=== PATIENT | female | born 1990 | race Caucasian/White ===

== ENCOUNTER 2024-10-29 11:24 | Inpatient (IN) | payer OTHER ==
[2024-10-29 12:36] VITALS: BMI 23.9
[2024-10-29] MEDS ORDERED: IBUPROFEN 400 MG TABLET (FP) PO PRN (12:54)
[2024-10-29] MEDS ORDERED: METHOCARBAMOL 500 MG TABLET PO PRN (12:54)
[2024-10-29] MEDS ORDERED: ACETAMINOPHEN 325 MG TABLET (FP) PO PRN (12:54)
[2024-10-29] MEDS ORDERED: BENZOCAINE/MENTHOL (CHLORASEPTIC ) LOZENGE MM PRN (12:54)
[2024-10-29] MEDS ORDERED: NALOXONE (NARCAN) HCL 4 MG/0.1 ML SPRAY NS PRN (12:54)
[2024-10-29] MEDS ORDERED: BISMUTH SUBSALICYLATE 524 MG/30 ML PO PRN (12:54)
[2024-10-29] MEDS ORDERED: IBUPROFEN 600 MG TABLET (FP) PO PRN (12:54)
[2024-10-29] MEDS ORDERED: hydrOXYzine PAMOATE 25 MG CAPSULE (FP) PO PRN (12:54)
[2024-10-29] MEDS ORDERED: ONDANSETRON *ODT* 4 MG TABLET SL PRN (12:54)
[2024-10-29] MEDS ORDERED: MAG HYDROX/AL HYDROX/SIMETH 30 ML UNIT-DOSE CUP PO PRN (12:54)
[2024-10-29] MEDS ORDERED: MAGNESIUM HYDROX 2400MG/30ML ORAL SUSPENSION 30 ML CUP PO PRN (12:54)
[2024-10-29] MEDS ORDERED: LOPERAMIDE HCL 2 MG CAPSULE PO PRN (12:54)
[2024-10-29] MEDS ORDERED: POLYETHYLENE GLYCOL (HEALTHYLAX) 3350 17 GM PACKET PO PRN (12:54)
[2024-10-29] MEDS ORDERED: BENZONATATE 200 MG CAPSULE PO PRN (12:54)
[2024-10-29] MEDS ORDERED: guaiFENesin 600 MG TABLET.ER (FP) PO PRN (12:54)
[2024-10-29] MEDS ORDERED: NICOTINE POLACRILEX 2 MG GUM BUC PRN (12:54)
[2024-10-29] MEDS ORDERED: DICYCLOMINE HCL 10 MG CAPSULE PO PRN (12:54)
[2024-10-29] MEDS: MELATONIN 5 MG TABLETS PO SCH (22:18)
[2024-10-29] MEDS: MIRTAZAPINE 15 MG TABLET (FP) PO SCH (22:18)
[2024-10-29] MEDS: THIAMINE 100 MG TABLET PO SCH (22:18)
[2024-10-30 10:35] LABS: MCHC 32.3 g/dl (32.2-35.5); MEAN CELL VOLUME 89.6 fl (79.4-94.8); MEAN PLT VOLUME 11.0 fl (9.4-12.3); RDW 12.9 % (12.1-16.8)
[2024-10-30 10:37] LABS: GLUCOSE,RANDOM 73.0 mg/dL (74-106); TOT PROT 7.7 g/dl (6.4-8.2)
[2024-10-30 10:38] LABS: CO2 26.0 mmol/L (21-32)
[2024-10-30 10:39] LABS: ALK PHOS 82.0 U/L (40-150)
[2024-10-30 10:42] LABS: CREATININE 0.72 mg/dL (0.55-1.3); SGOT/AST 17.0 U/L (5-34); SGPT/ALT 14.0 U/L (0-55)
[2024-10-30] MEDS: NICOTINE 21 MG/24 HOURS TOPICAL PATCH TD SCH (10:50)
[2024-10-30] MEDS: PRENATAL VITAMINS W/ FOLIC ACID TABLET (FP) PO SCH (10:50)
[2024-11-01 12:48] VITALS: BP 100/68; PULSE 89; RESP 16; TEMP 97.8
== END 2024-11-01 15:19 | disposition left against medical advice (07) | DRG 770 ==
LOC: YASAS 11:24 → Y3N 14:45
PROVIDERS: ADMIT Family Medicine; ATTEND Student in an Organized Health Care Education/Training Program
PROC: HZ2ZZZZ Detoxification Services for Substance Abuse Treatment (ICD-10-PCS; principal; 2024-10-29)
DX: F11.23 Opioid dependence with withdrawal (principal); F10.230 Alcohol dependence with withdrawal, uncomplicated; F14.20 Cocaine dependence, uncomplicated; F17.210 Nicotine dependence, cigarettes, uncomplicated; F41.9 Anxiety disorder, unspecified; F32.A Depression, unspecified
CPT/HCPCS: 36415; 80053; 80307; 85027; 86780; 86803